=== PATIENT | male | born 1940 | race Caucasian/White ===

== ENCOUNTER → 2016-12-03 | Outpatient (CLI) | payer OTHER, BC ==
[~2016-12-03] MED LIST: LATA0.009 OP; VALA500T60 PO
--- NOTE | 2016-12-03 09:23 | DIAGNOSTIC IMAGING REPORT ---
(CHEST) THORAX WITHOUT CLINICAL HISTORY: Left lung mass. Multiple pulmonary nodules. COMPARISON STUDY: 06/04/2016 CT DOSE: 411.41 mGy.cm TECHNIQUE: CT of the thorax was performed from the thoracic inlet to the lung bases. Images are reviewed in the axial, sagittal, and coronal planes. IV contrast was not administered for this examination. FINDINGS: Thyroid: Imaged portions of the thyroid gland are normal in appearance. Thoracic aorta: The thoracic aorta is normal in course and caliber, noting standard 3 vessel arch anatomy. Heart: The heart is normal in size and configuration, without pericardial effusion. Lungs and pleural spaces: No pleural effusions are visualized. There is a stable 53 x 28 x 22 mm left lower lobe pulmonary nodule containing both calcification and fat. This is likely benign. There are multiple additional pulmonary nodules including an irregular marginated 18 mm right lower lobe pulmonary nodule, as well as clustered irregular tangential nodules within superior segment the right lower lobe measuring 15 mm in aggregate. There is also a stable 5 mm right upper lobe pulmonary nodule. There is a 6 mm left upper lobe pulmonary nodule containing a central calcification. Mediastinum: There is no evidence of pathologic mediastinal lymphadenopathy Viviane: There is no evidence of pathologic hilar adenopathy given the limitations of a noncontrast study Axilla: There is no evidence of pathologic axillary lymphadenopathy Upper abdomen: There is stable 21 mm left lobe hepatic cyst Skeletal structures: There are multiple thoracic compression deformities. There is partial bony fusion of the T12 and L1 vertebra. IMPRESSION: 1. Stable 58 x 28 x 22 mm left lower lobe pulmonary nodule containing both calcification and fat. 2. Multiple additional irregular pulmonary nodules including an 18 mm irregular marginated solid right lower lobe pulmonary nodule. 3. No evidence of focal pulmonary consolidation 4. No evidence of pathologic adenopathy 5. 12 month follow-up is recommended. Electronically signed by: Jasiel Duron M.D. 12/03/2016 9:22 AM Dictated Date/Time: 12/03/2016 9:11 AM
== END | disposition home or self-care (01) ==
LOC: C.CTS 08:52
PROVIDERS: ATTEND Surgery
DX: R91.8 Other nonspecific abnormal finding of lung field (principal); R91.1 Solitary pulmonary nodule